=== PATIENT | female | born 1975 | race Hispanic/Latino ===

== ENCOUNTER 2020-10-31 11:05 | Emergency (ER) | payer OTHER, SELFPAY ==
--- OUTSIDE RECORDS SUMMARY | 2020-10-31 11:10 | XMS REPORT | Continuity of Care Document ---
:1975 Author Organization [facility] t Address [address] [place] [address] Care Team Providers Name Role Phone Jose Whiting MD Attending Clinician Problems This patient has no known problems. Allergies, Adverse Reactions, Alerts This patient has no known allergies or adverse reactions. Medications This patient has no known medications. Procedures This patient has no known procedures. Encounters Start End Encounter Admission Attending Care Care Encounter Source Date/Time Date/Time Type Type Clinicians Facility Department ID 2020-06-07 2020-06-07 Outpatient [facility] [id number] [facility] 00:00:00 00:00:00 [facility] ent Clinics 2019-03-04 2019-03-04 [facility] [id number] 08:51:54 23:59:00 Encounter [facility] Man [id number] [place] [id number] [place] [id number] Results This patient has no known results.
[2020-10-31] MEDS ORDERED: dexAMETHasone 10 MG/ML VIAL ONE (12:27)
[2020-10-31] MEDS ORDERED: LEVALBUTEROL 1.25 MG/3 ML NEB ONE (12:27)
[2020-10-31] MEDS ORDERED: ACETAMINOPHEN 325 MG TABLET ONE (12:27)
[2020-10-31] MEDS ORDERED: NA CHLORIDE 0.9% 3,000 ML ONE (12:28)
[2020-10-31] MEDS ORDERED: CEFTRIAXONE/SWI 1gm 1 GM/10 ML SYR ONE (12:28)
[2020-10-31 12:40] LABS: Basophils % 0.4 % (0-1.3); Hematocrit 37.1 % (36.0-45.0); Lymphocytes % 22.5 % (15.3-44.8); MPV 8.8 fL (7.6-11.3); RBC Red Blood Cell Count 4.37 M/uL (3.86-4.86)
[2020-10-31 12:42] LABS: Protime INR 1.13
--- NOTE | 2020-10-31 12:52 | RAD REPORT ---
EXAM DESCRIPTION: RAD - Chest Single View - 10/31/2020 12:44 pm CLINICAL HISTORY: COUGH, shortness of breath, positive COVID test COMPARISON: None TECHNIQUE: AP portable chest image was obtained 10/31/2020 12:44 pm . FINDINGS: Lung volumes are reduced. Bilateral airspace opacification is present more in a peripheral distribution than central. Trachea is midline. Heart and vasculature are normal. No measurable pleur al effusion and no pneumothorax. No acute bony abnormality seen. No acute aortic findings suspected. IMPRESSION: Moderate severity bilateral pneumonia pattern. Given the positive COVID test, COVID-19 pneumonia is the most probable etiology.
[2020-10-31 13:00] LABS: ALT/SGPT 50 U/L (12-78); AST/SGOT 41 U/L (15-37); Albumin 3.4 g/dL (3.4-5.0); Alkaline Phosphatase 87 U/L (45-117); Amylase 36 U/L (25-115); BUN Blood Urea Nitrogen 5 mg/dL (7-18); Bicarbonate 24 mmol/L (21-32); Bilirubin Direct 0.2 mg/dL (0-0.2); Bilirubin Total 0.5 mg/dL (0.2-1.0); CKMB Creatine Kinase MB < 1.0 ng/mL (0.3-3.6); Creatine Phosphokinase 50 U/L (26-192); Ferritin 89.8 ng/mL (8-388); Glucose Level 99 mg/dL (74-106); Lipase 78 U/L (73-393); Potassium 3.6 mmol/L (3.5-5.1); Protein, Total 7.9 g/dL (6.4-8.2); Sodium Level 137 mmol/L (136-145); Troponin (Emerg Dept Use Only) < 0.02 ng/mL (0.0-0.045)
--- NOTE | 2020-10-31 14:24 | RAD REPORT ---
EXAM DESCRIPTION: CT - Chest For Pe Angio - 10/31/2020 1:52 pm CLINICAL HISTORY: SOB, COVID positive COMPARISON: Chest Single View dated 10/31/2020 TECHNIQUE: Dynamically enhanced 3 mm thick images of the chest were obtained during administration o f approximately 150mL Isovue 370 IV contrast. Coronal and oblique MIP reconstruction images were gene rated and reviewed. Exam utilizes a protocol to evaluate the pulmonary arterial tree. All CT scans are performed using dose optimization technique as appropriate and may include automated exposure control or mA/KV adjustment according to patient size. FINDINGS: No pulmonary emboli are identified. The aorta as imaged shows no acute or suspicious finding. No pericardial thickening or effusion. Extensive ground-glass airspace opacification in a predominantly peripheral pattern is seen throughou t all lobes. No pleural effusion or pleural thickening. No cavitation or suspicious mass lesion. No mediastinal or hilar suspicious masses. No chest wall masses or abnormal axillary lymphadenopathy. IMPRESSION: No pulmonary emboli identified. Moderate severity bilateral COVID-19 pneumonia.
--- NOTE | 2020-10-31 15:04 | ER ---
Nurse's Notes [facility] Name: Nereida Clark Age: 45 yrs Sex: Female : 1975 Arrival Date: 10/31/2020 Time: 11:08 Bed 8 Private MD: Diagnosis: Coronavirus infection, unspecified Presentation: 10/31 11:37 Chief complaint: Patient states: Cough, shortness of breath and headache. COVID + on ss 10/25/20. Coronavirus screen: Client denies travel out of the [place] in the last 14 days. Ebola Screen: Patient denies exposure to infectious person. Patient denies travel to an Ebola-affected area in the 21 days before illness onset. Initial Sepsis Screen: Does the patient meet any 2 criteria? Yes Does the patient have a suspected source of infection? Yes: Other: possible covid pneumonia. Risk Assessment: Do you want to hurt yourself or someone else? Patient reports no desire to harm self or others. Onset of symptoms was October 23, 2020. 11:37 Method Of Arrival: Ambulatory ss 11:37 Acuity: SHY 2 ss Historical: - Allergies: 11:39 No Known Allergies; ss - Home Meds: 11:39 None [Active]; ss - PMHx: 11:39 None; ss - PSHx: 11:39 None; ss - Immunization history:: Adult Immunizations unknown. - Social history:: Smoking status: Patient denies any tobacco usage or history of. Screenin:24 Abuse screen: Denies threats or abuse. Denies injuries from another. Nutritional hb screening: No deficits noted. Tuberculosis screening: No symptoms or risk factors identified. Fall Risk None identified. Assessment: 12:24 General: Appears in no apparent distress. Behavior is calm, cooperative. Pain: Pain hb currently is 10 out of 10 on a pain scale. Neuro: Level of Consciousness is awake, alert, obeys commands, Oriented to person, place, time, situation. Cardiovascular: Patient's skin is warm and dry. Rhythm is sinus tachycardia. Respiratory: Reports shortness of breath at rest on exertion cough that is non-productive, Respiratory effort is even, unlabored, Respiratory pattern is regular, symmetrical. GI: Reports nausea. : No signs and/or symptoms were reported regarding the genitourinary system. EENT: No signs and/or symptoms were reported regarding the EENT system. Derm: Skin is pink, warm \T\ dry. Musculoskeletal: Reports body aches. 13:08 Reassessment: Patient appears in no apparent distress at this time. Patient and/or hb family updated on plan of care and expected duration. Pain level reassessed. Patient is alert, oriented x 3, equal unlabored respirations, skin warm/dry/pink. 14:07 Reassessment: Patient appears in no apparent distress at this time. Patient and/or hb family updated on plan of care and expected duration. Pain level reassessed. Patient is alert, oriented x 3, equal unlabored respirations, skin warm/dry/pink. 15:00 Reassessment: Patient appears in no apparent distress at this time. Patient and/or hb family updated on plan of care and expected duration. Pain level reassessed. Patient is alert, oriented x 3, equal unlabored respirations, skin warm/dry/pink. Vital Signs: 11:37 BP 109 / 71; Pulse 142; Resp 25; Temp 101.2(O); Pulse Ox 99% on R/A; Weight 92.99 kg; ss Height 5 ft. 7 in. (170.18 cm); Pain 10/10; 13:00 BP 108 / 69; Pulse 115; Resp 24; Pulse Ox 98% on 2% Nebulizer Mask; sv 14:10 Temp 98.9(O); mt 14:47 Pulse 99; Resp 22; Pulse Ox 94% on R/A; sv 11:37 Body Mass Index 32.11 (92.99 kg, 170.18 cm) ED Course: 11:08 Patient arrived in ED. ds1 11:38 Nicolas Desai PA is PHCP. jmm 11:38 Herson Newman MD is Attending Physician. jmm 11:39 Triage completed. ss 11:39 Arm band placed on right wrist. ss 12:12 Inserted saline lock: 20 gauge in right antecubital area, using aseptic technique. hb Blood collected. 12:22 Ivelisse Bernal, RN is Primary Nurse. hb 12:24 Patient has correct armband on for positive identification. Bed in low position. Call hb light in reach. 12:24 X-ray(s) taken. sv 12:42 Basic Metabolic Panel Sent. sv 12:42 Blood Culture Adult (2) Sent. sv 12:42 CBC with Diff Sent. sv 12:42 Ckmb Sent. sv 12:42 CPK Sent. sv 12:42 Lactate Sent. sv 12:42 LFT's Sent. sv 12:42 Lipase Sent. sv 12:42 Chest Single View XRAY Sent. sv 12:44 Chest Single View XRAY In Process Unspecified. EDMS 13:09 Amylase, Serum Sent. sv 13:52 CT Chest For PE Angio In Process Unspecified. EDMS 15:31 No provider procedures requiring assistance completed. IV discontinued, intact, hb bleeding controlled, No redness/swelling at site. Administered Medications: 12:15 Drug: NS 0.9% (30 ml/kg) 30 ml/kg Route: IV; Rate: bolus; Site: right antecubital; hb 12:15 Drug: Tylenol 650 mg Route: PO; hb 13:15 Follow up: Response: No adverse reaction hb 12:15 Drug: Decadron - Dexamethasone 10 mg Route: IVP; Site: right antecubital; hb 13:00 Follow up: Response: No adverse reaction hb 12:15 Drug: Rocephin (cefTRIAXone) 1 grams Route: IV; Rate: calculated rate; Site: right hb antecubital; 12:16 Follow up: IV Status: Completed infusion; IV Intake: 10ml hb 13:00 Follow up: Response: No adverse reaction hb 12:33 Drug: Xopenex (3) 1.25 mg Route: Inhalation; hb 13:20 Follow up: Response: No adverse reaction hb Intake: 12:16 IV: 10ml; Total: 10ml. hb Outcome: 15:03 Discharge ordered by MD. villavicencio 15:31 Discharged to home ambulatory. hb 15:31 Condition: stable 15:31 Discharge instructions given to patient, Instructed on discharge instructions, follow up and referral plans. medication usage, Demonstrated understanding of instructions, follow-up care, medications, Prescriptions given X 3. 15:32 Patient left the ED. hb Signatures: Dispatcher [employer] Madalyn Malcolm RN Nicolas Hayes PA PA jmm Sanford, Demi ds1 Anat Stone RN RN ss Baxter, Heather, RN RN hb Thompson, Moriah me Corrections: (The following items were deleted from the chart) 13:09 13:08 BP 108 / 69; Pulse 114bpm; Resp 28bpm; Pulse Ox 98% RA; hb hb
--- NOTE | 2020-10-31 15:04 | EDPHYS ---
Physician Documentation [facility] Name: Nereida Clark Age: 45 yrs Sex: Female : 1975 Arrival Date: 10/31/2020 Time: 11:08 Bed 8 Private MD: ED Physician Herson Newman HPI: 10/31 11:50 This 45 yrs old Female presents to ER via Ambulatory with complaints of Covid jmm + Chest Pain, Fever, Shortness Of Breath. 11:50 Onset: The symptoms/episode began/occurred gradually, 6 day(s) ago. Associated signs jmm and symptoms: Pertinent positives: shortness of breath. The patient has not experienced similar symptoms in the past. This is a 45 year old female with no chronic medical conditions that presents to the ED with complaints of fever, body aches, shortness of breath worsening since her diagnosis of covid 19 6 days prior. . Historical: - Allergies: 11:39 No Known Allergies; ss - Home Meds: 11:39 None [Active]; ss - PMHx: 11:39 None; ss - PSHx: 11:39 None; ss - Immunization history:: Adult Immunizations unknown. - Social history:: Smoking status: Patient denies any tobacco usage or history of. ROS: 11:50 Constitutional: Positive for body aches, fever. jmm 11:50 Respiratory: Positive for cough, shortness of breath. 11:50 All other systems are negative. Exam: 11:50 Head/Face: atraumatic. Eyes: EOMI, no conjunctival erythema appreciated ENT: Moist jmm Mucus Membranes Neck: Trachea midline, Supple Chest/axilla: Normal chest wall appearance and motion. 11:50 Abdomen/GI: Non distended, soft Back: Normal ROM Skin: General appearance color normal MS/ Extremity: Moves all extremities, no obvious deformities appreciated, no edema noted to the lower extremities Neuro: Awake and alert, normal gait Psych: Behavior is normal, Mood is normal, Patient is cooperative and pleasant 11:50 Constitutional: The patient appears alert, awake, anxious. 11:50 Cardiovascular: Rate: tachycardic, Rhythm: regular. 11:50 Respiratory: mild respiratory distress is noted, Respirations: labored breathing, that is mild, Breath sounds: are clear throughout. Vital Signs: 11:37 BP 109 / 71; Pulse 142; Resp 25; Temp 101.2(O); Pulse Ox 99% on R/A; Weight 92.99 kg; ss Height 5 ft. 7 in. (170.18 cm); Pain 10/10; 13:00 BP 108 / 69; Pulse 115; Resp 24; Pulse Ox 98% on 2% Nebulizer Mask; sv 14:10 Temp 98.9(O); mt 14:47 Pulse 99; Resp 22; Pulse Ox 94% on R/A; sv 11:37 Body Mass Index 32.11 (92.99 kg, 170.18 cm) ss MDM: 11:50 Patient medically screened. [facility] 15:00 Data reviewed: vital signs, nurses notes. Counseling: I had a detailed discussion with ben the patient and/or guardian regarding: the historical points, exam findings, and any diagnostic results supporting the discharge/admit diagnosis, lab results, radiology results, the need for outpatient follow up. ED course: Patient is alert and non toxic in appearance in the ED on admission. Patient states she feels much better. Patient is given strict return precautions. patient understood and agrees with the plan of care. . 10/31 11:53 Order name: Amylase, Serum [facility] 10/31 11:53 Order name: Basic Metabolic Panel [facility] 10/31 11:53 Order name: Blood Culture Adult (2) [facility] 10/31 11:53 Order name: CBC with Diff [facility] 10/31 11:53 Order name: Ckmb [facility] 10/31 11:53 Order name: CPK [facility] 10/31 11:53 Order name: Lactate [facility] 10/31 11:53 Order name: LFT's [facility] 10/31 11:53 Order name: Lipase [facility] 10/31 11:53 Order name: Procalcitonin; Complete Time: 13:06 [facility] 10/31 11:53 Order name: Protime (+inr); Complete Time: 13:20 [facility] 10/31 11:53 Order name: Ptt, Activated; Complete Time: 13:20 [facility] 10/31 11:53 Order name: Troponin (emerg Dept Use Only); Complete Time: 13:06 [facility] 10/31 11:53 Order name: Chest Single View XRAY; Complete Time: 12:53 [facility] 10/31 11:53 Order name: Ferritin; Complete Time: 13:06 [facility] 10/31 11:53 Order name: CRP; Complete Time: 13:06 [facility] 10/31 11:53 Order name: D-Dimer; Complete Time: 13:20 [facility] 10/31 11:54 Order name: Amylase; Complete Time: 13:06 [facility] 10/31 11:54 Order name: Basic Metabolic Panel; Complete Time: 13:06 [facility] 10/31 11:54 Order name: Blood Culture [facility] 10/31 11:54 Order name: CBC with Automated Diff; Complete Time: 12:43 [facility] 10/31 11:54 Order name: CKMB Creatine Kinase MB; Complete Time: 13:06 [facility] 10/31 11:54 Order name: Creatine Phosphokinase; Complete Time: 13:06 [facility] 10/31 11:54 Order name: Lactate; Complete Time: 12:43 [facility] 10/31 11:54 Order name: Liver (Hepatic) Function; Complete Time: 13:06 [facility] 10/31 11:54 Order name: Lipase; Complete Time: 13: [facility] 10/31 13:19 Order name: CT Chest For PE Angio; Complete Time: 14:24 [facility] 10/31 11:53 Order name: Accucheck; Complete Time: 12: [facility] 10/31 11:53 Order name: Cardiac monitoring; Complete Time: 12: [facility] 10/31 11:53 Order name: EKG - Nurse/Tech; Complete Time: 12:29 [facility] 10/31 11:53 Order name: IV Saline Lock - Large Bore; Complete Time: 12:26 [facility] 10/31 11:53 Order name: Labs collected and sent; Complete Time: 12: [facility] 10/31 11:53 Order name: O2 Per Protocol; Complete Time: 12: [facility] 10/31 11:53 Order name: O2 Sat Monitoring; Complete Time: 12:27 [facility] Administered Medications: 12:15 Drug: NS 0.9% (30 ml/kg) 30 ml/kg Route: IV; Rate: bolus; Site: right antecubital; hb 12:15 Drug: Tylenol 650 mg Route: PO; hb 13:15 Follow up: Response: No adverse reaction hb 12:15 Drug: Decadron - Dexamethasone 10 mg Route: IVP; Site: right antecubital; hb 13:00 Follow up: Response: No adverse reaction hb 12:15 Drug: Rocephin (cefTRIAXone) 1 grams Route: IV; Rate: calculated rate; Site: right hb antecubital; 12:16 Follow up: IV Status: Completed infusion; IV Intake: 10ml hb 13:00 Follow up: Response: No adverse reaction hb 12:33 Drug: Xopenex (3) 1.25 mg Route: Inhalation; hb 13:20 Follow up: Response: No adverse reaction hb Disposition: 11/01 07:16 Co-signature as Attending Physician, Herson Newman MD I agree with the assessment and [facility] plan of care. Disposition: 10/31/20 15:03 Discharged to Home. Impression: Coronavirus infection, unspecified. - Condition is Stable. - Discharge Instructions: COVID-19. - Prescriptions for ivermectin 3 mg Oral tablet - take 6 tablet by ORAL route as directed a dose on day one, 2nd dose on day three; 12 tablet. Prednisone 20 mg Oral Tablet - take 3 tablet by ORAL route once daily for 5 days; 15 tablet. Albuterol Sulfate 90 mcg/actuation - inhale 1-2 puff by INHALATION route every 4-6 hours; 1 Inhaler. - Medication Reconciliation Form, Thank You Letter, Antibiotic Education, Prescription Opioid Use form. - Follow up: Private Physician; When: 2 - 3 days; Reason: Recheck today's complaints, Continuance of care, Re-evaluation by your physician. Signatures: Dispatcher [employer] Herson Lubin MD MD cha Mickail, Joel, PA PA jmm Smirch, Shelby, RN RN Ivelisse Bernla RN RN Corrections: (The following items were deleted from the chart) 10/31 15:32 15:03 10/31/2020 15:03 Discharged to Home. Impression: Coronavirus infection, hb unspecified. Condition is Stable. Forms are Medication Reconciliation Form, Thank You Letter, Antibiotic Education, Prescription Opioid Use. Follow up: Private Physician; When: 2 - 3 days; Reason: Recheck today's complaints, Continuance of care, Re-evaluation by your physician. maye
[2020-10-31 17:28] VITALS: TEMP 98.9
[2020-10-31 17:29] VITALS: BP 108/69
[2020-10-31 17:30] VITALS: O2SAT 94
== END 2020-10-31 15:32 | disposition home or self-care (01) ==
LOC: ER 11:05
DX: U07.1 COVID-19 (principal)
CPT/HCPCS: 36415; 71045; 71275; 80048; 80076; 82150; 82550; 82553; 82728; 83605; 83690; 84145; 84484; 85025; 85379; 85610; 85730; 86140; 87040; 93005; 96374; 96375; 99285; J0696; J1100; J7030; Q9967